=== PATIENT | male | born 1975 | race Caucasian/White ===

== ENCOUNTER 2020-03-14 16:44 | Emergency (ER) | payer OTHER ==
[2020-03-14] MEDS ORDERED: cephALEXin 250 MG CAPSULE PO STA (17:48)
[2020-03-14] MEDS ORDERED: SULFAMETH/TRIMETH DS 800/160 MG TABLET PO STA (17:48)
[2020-03-14] MEDS ORDERED: BUFFERED LIDOCAINE 10 ML SYRINGE SUBQ STA (17:49)
[2020-03-14] MEDS ORDERED: BACITRACIN ZINC OINT 1 PACKET TOP STA (18:11)
--- NOTE | 2020-03-14 18:17 | ED Physician Documentation ---
History of Present Illness - Stated complaint Stated Complaint: RT THUMB SWOLLEN - Chief complaint Chief Complaint: General - History of Present Illness Timing: Prior to arrival, How many days ago (3) - Additonal information Additional information: 44-year-old male presents the emergency department for 3 days of right thumb swelling and pain. He reports that when he woke up he had some swelling of the fat pad of his thumb since then it has gotten progressively larger and more painful. Yesterday he tried poking a needle into the thumb to try and drain it but nothing drained. He denies any fever. Reports tetanus is up-to-date within the last 6 months. This gentleman appears to have a thumb cellulitis or a felon. PD PAST MEDICAL HISTORY - Past Surgical History Past Surgical History: No - Present Medications Home Medications: Ambulatory Orders Medication Instructions Recorded Confirmed Cephalexin [Keflex] 500 mg PO Q6H #28 capsule 03/14/20 Hydrocodone/Acetaminophen [[place] 1 each PO BID #5 tablet 03/14/20 5-325 Tablet] Sulfamethox/Trimeth 800/160 1 each PO BID #14 tablet 03/14/20 [Bactrim Ds 800/160] - Allergies Allergies/Adverse Reactions: Allergies Allergy/AdvReac Type Severity Reaction Status Date / Time No Known Drug Allergies Allergy Verified 03/14/20 17:07 - Social History Does the pt smoke?: Yes Smoking Status: Current every day smoker Does the pt drink ETOH?: No Does the pt have substance abuse?: No Substance Use and Type: Marijuana - Immunizations Immunizations are current?: Yes - POLST Patient has POLST: No PD ED PE EXPANDED - Extremities Extremities: Right finger(s) (Swelling, ecchymosis and tenderness of the fat pad of the right thumb. Flexion and extension at DIP is preserved. 2+ radial pu lse. There is a centralized area on the fat pad where patient had attempted needle drainage by himself at home) Results - Vitals Vitals: Vital Signs - 24 hr 03/14/20 17:01 Temperature 37.1 C Heart Rate 80 Respiratory 14 Rate Blood Pressure 127/96 H O2 Saturation 98 Oxygen O2 Source Venturi mask Procedures - Abscess I&D (location) right thumb Preparation: Chlorhexadine, Lidocaine 1% (digital nerve block) Incision: Incised with scalpel, Purulent drainage Other: Pt tolerated well, Dressing applied, Antibiotic prescribed PD MEDICAL DECISION MAKING - ED course Complexity details: reviewed results, re-evaluated patient, considered differential, d/w patient ED course: 44-year-old male presents to the emergency department for evaluation of a right thumb fat pad infection consistent with cellulitis and felon. He was given Keflex and Bactrim here in the emergency department. We did do a incision and drainage along the vertical axis of the thumb with a small amount of purulent fluid draining. Postprocedure patient had preserved flexion and extension at the DIP. This gentleman will be placed on Keflex and Bactrim and advised warm salt water soaks. Given the exquisitely painful nature of the thumb I will also prescribe a limited amount of hydrocodone. Emergent return precautions discussed for signs of worsening infection Departure - Departure Disposition: 01 Home, Self Care Clinical Impression: Cellulitis of thumb, right, Felon of finger of right hand Condition: Stable Record reviewed to determine appropriate education?: Yes Prescriptions: Sulfamethox/Trimeth 800/160 [Bactrim Ds 800/160] 1 each PO BID #14 tablet Cephalexin [Keflex] 500 mg PO Q6H #28 capsule Hydrocodone/Acetaminophen [[place] 5-325 Tablet] 1 each PO BID #5 tablet Comments: Avel you have an infection in the fat pad of your right thumb. I have done a simple incision and a small amount of milky drainage did come out. Please fill the prescription for the antibiotics and begin taking as directed. I would like to keep your thumb elevated above the level of your heart for the next 2 days. I would also recommend that you soak the thumb in warm salt water for 10 minutes 3 times a day. Do not drive if taking norco for pain, it can legally intoxicate you If you are having increased redness swelling pain despite the antibiotics or have concerns that the infection is worsening please return immediately to the ER
[2020-03-14 18:31] VITALS: BP 126/80
== END 2020-03-14 18:34 | disposition home or self-care (01) ==
LOC: ED 16:44
DX: L03.011 Cellulitis of right finger (principal); F17.200 Nicotine dependence, unspecified, uncomplicated
CPT/HCPCS: 26010; 87070; 87205; 99281; 99283; A9270; 87181